=== PATIENT | female | born 1960 | race Caucasian/White ===

== ENCOUNTER → 2024-02-21 12:02 | Outpatient (BNVA) | payer MEDICAID, SELFPAY | PROVIDERS: Referring Provider Nurse Practitioner Family; Visit Provider Internal Medicine | DX: E05.90 Thyrotoxicosis, unspecified without thyrotoxic crisis or storm (principal); E03.8 Other specified hypothyroidism; E06.3 Autoimmune thyroiditis; E04.2 Nontoxic multinodular goiter; R00.2 Palpitations | CPT/HCPCS: 36415; 83516; 84439; 84443; 84480; 99204 ==